=== PATIENT | male | born 1960 | race Native Hawaiian/Other Pacific Islander ===

== ENCOUNTER 2016-07-28 10:56 | Outpatient (CLI) | payer OTHER ==
[2016-07-28 11:35] LABS: PLATELET COUNT 321 K/uL (142-355)
[2016-07-28 12:02] LABS: POTASSIUM 4.1 mmol/L (3.6-5.2); SODIUM 133 mmol/L (136-145)
== END 2016-07-28 19:14 | disposition home or self-care (01) ==
LOC: LABW 10:56
PROVIDERS: Psychiatry & Neurology Addiction Medicine
DX: E11.9 Type 2 diabetes mellitus without complications (principal); E78.2 Mixed hyperlipidemia; Z79.899 Other long term (current) drug therapy; G89.4 Chronic pain syndrome
CPT/HCPCS: 36415; 80053; 80061; 81000; 83036; 84443; 85027

== ENCOUNTER 2016-12-16 10:27 | Outpatient (CLI) | payer OTHER ==
[2016-12-16 11:08] LABS: PLATELET COUNT 305 K/uL (142-355)
[2016-12-16 11:39] LABS: POTASSIUM 4.2 mmol/L (3.6-5.2); SODIUM 138 mmol/L (136-145)
== END 2016-12-16 21:53 | disposition home or self-care (01) ==
LOC: LABW 10:27
PROVIDERS: Psychiatry & Neurology Addiction Medicine
DX: E11.9 Type 2 diabetes mellitus without complications (principal); E78.2 Mixed hyperlipidemia; Z79.899 Other long term (current) drug therapy; Z51.81 Encounter for therapeutic drug level monitoring; G89.4 Chronic pain syndrome
CPT/HCPCS: 36415; 80053; 80061; 81000; 83036; 84153; 84443; 85027; 87088